=== PATIENT | male | born 1970 | race Caucasian/White ===

== ENCOUNTER 2023-07-03 01:10 | Inpatient (IN) | payer OTHER ==
[2023-07-03 01:41] LABS: #Basophils 0.1 thou/uL (0.0-0.2); #Monocytes 1.4 thou/uL (0.11-0.59); #Neutrophils 13.4 thou/uL (1.40-6.50); %Basophils 0.4 % (0.0-1.0); %Eosinophils 0.2 % (0.0-10.0); %Lymphocytes 4.2 % (21.0-51.0); %Monocytes 8.8 % (0.0-10.0); %Neutrophils 85.7 % (42.0-75.0); Hematocrit 41.9 % (42.0-52.0); Hemoglobin 14.6 g/dL (14.0-18.0); Mean Corpuscular HGB CONC 34.8 g/dL (32.0-36.0); Mean Corpuscular Hemoglobin 27.7 pg (27.0-31.0); Mean Corpuscular Volume 79.5 fl (78.0-98.0); Mean Platelet Volume 9.8 fL (7.4-10.4); Platelet Count 181 10x3/uL (130-400); RBC Distribution Width 14.4 % (11.5-14.5); Red Blood Cell (RBC) Count 5.27 mill/uL (4.70-6.10); White Blood Cell (WBC) Count 15.6 10x3/uL (4.8-10.8)
[2023-07-03 01:55] LABS: Bilirubin Negative (Negative); Blood, Urine Negative (Negative); Clarity Clear (Clear); Glucose, Urine (Dipstick) Greater than 1000 mg/dL (Negative); Ketone, Urine 40 mg/dL (Negative); Leukocyte Negative Leu/uL (Negative); Nitrite Negative (Negative); Protein, Urine (Dipstick) Negative (Neg-Trace); Specific Gravity, Urine 1.032 (1.002-1.036); Urobilinogen Normal mg/dL (Less than 2)
[2023-07-03 02:04] LABS: ALT (SGPT) 43 U/L (8-55); AST (SGOT) 36 U/L (5-34); Albumin 4.4 g/dL (3.5-5.0); Alkaline Phosphatase 65 U/L (40-110); Anion Gap 17 mmol/L (10-20); BUN (Urea Nitrogen) 19 mg/dL (8.4-25.7); Bilirubin, Total 1.6 mg/dL (0.2-1.2); Calc. Creatinine Clearance 0 mL/min (70-130); Calcium 8.8 mg/dL (7.8-10.44); Carbon Dioxide 18 mmol/L (22-29); Chloride 102 mmol/L (98-107); Estimated GFR 54; Globulin 2.7 g/dL (2.4-3.5); Glucose 326 mg/dL (70-105); Lipase 16 U/L (8-78); Potassium 3.7 mmol/L (3.5-5.1); Protein, Total 7.1 g/dL (6.0-8.3); Sodium 133 mmol/L (136-145)
[2023-07-03 02:15] LABS: Troponin I Less than 0.010 ng/mL (< 0.028)
[2023-07-03 02:29] LABS: SARS-CoV-2 NAA Rapid Test Not Detected (NotDetected)
[2023-07-03] MEDS ORDERED: Cefepime 2 GM VIAL ONE ×2 (04:47→04:49)
[2023-07-03] MEDS ORDERED: Vancomycin 1 GM/200 ML (FROZEN) BAG ONE (04:48)
[2023-07-03] MEDS ORDERED: Metoprolol Tartrate 5 MG/5 ML VIAL ONE (04:48)
[2023-07-03] MEDS ORDERED: Sodium Chloride 0.9% 1,000 ML IV SCH ×4 (06:00→08:45)
[2023-07-03] MEDS ORDERED: Ondansetron ODT 4 MG TAB SL PRN (06:00)
[2023-07-03] MEDS ORDERED: Ondansetron PF 4 MG/2 ML Vial IVP PRN (06:00)
[2023-07-03 07:10] LABS: Actual Bicarbonate (HCO3v) 18.2 mEq/L (22-28); Base Excess -4.3 mEq/L (-2.0 to +3.0); Calcium, Ionized (venous) 1.03 mmol/L (1.16-1.32); Chloride (VBG) 101 mmol/L (98-106); Hematocrit-VBG 44 % (42.0-52.0); Hemoglobin (Hb) 14.8 g/dL (13.1-17.2); Potassium (VBG) 3.95 mmol/L (3.70-5.30); Sodium 132 mmol/L (133-146)
[2023-07-03] MEDS ORDERED: Dextrose 5% in Water 1,000 ML IV PRN (08:13)
[2023-07-03] MEDS ORDERED: Glucagon 1 MG/ML KIT IM PRN (08:13)
[2023-07-03] MEDS ORDERED: Dextrose 50% Abboject 50 ML SYRINGE SLOW IVP PRN (08:13)
[2023-07-03 08:18] LABS: #Basophils 0.1 thou/uL (0.0-0.2); #Monocytes 1.3 thou/uL (0.11-0.59); #Neutrophils 14.8 thou/uL (1.40-6.50); %Basophils 0.3 % (0.0-1.0); %Eosinophils 0.1 % (0.0-10.0); %Lymphocytes 5.4 % (21.0-51.0); %Monocytes 7.5 % (0.0-10.0); %Neutrophils 86.3 % (42.0-75.0); Hematocrit 40.1 % (42.0-52.0); Hemoglobin 13.9 g/dL (14.0-18.0); Mean Corpuscular HGB CONC 34.7 g/dL (32.0-36.0); Mean Corpuscular Hemoglobin 27.8 pg (27.0-31.0); Mean Corpuscular Volume 80.2 fl (78.0-98.0); Mean Platelet Volume 10.4 fL (7.4-10.4); Platelet Count 191 10x3/uL (130-400); RBC Distribution Width 14.6 % (11.5-14.5); White Blood Cell (WBC) Count 17.2 10x3/uL (4.8-10.8)
[2023-07-03 08:19] LABS: Anion Gap 14 mmol/L (10-20); BUN (Urea Nitrogen) 14 mg/dL (8.4-25.7); Calc. Creatinine Clearance 0 mL/min (70-130); Calcium 8.6 mg/dL (7.8-10.44); Carbon Dioxide 19 mmol/L (22-29); Chloride 104 mmol/L (98-107); Estimated GFR 77; Glucose 289 mg/dL (70-105); Potassium 3.9 mmol/L (3.5-5.1); Sodium 133 mmol/L (136-145)
[2023-07-03] MEDS ORDERED: Acetaminophen 500 MG TAB ONE (09:01)
[2023-07-03] MEDS ORDERED: Meropenem 1 GM in Sodium Chloride 0.9% 100 ML IVPB SCH (10:00)
[2023-07-03] MEDS ORDERED: Vancomycin (BATCH) 1.5 GM in Premix 1 BAG IVPB SCH (12:15)
[2023-07-03] MEDS ORDERED: FLU VACC QS2023-24(6MOS UP)/PF 60 MCG/0.5 ML SYRINGE IM ONE (12:45)
[2023-07-03] MEDS: HumaLOG 300 UNITS/3 ML VIAL SC PRN ×3 (13:21→20:34)
[2023-07-03] MEDS ORDERED: Iopamidol-370 76% 500 ML MDV (1 ML CHARGE) ONE ×2 (13:56→14:02)
[2023-07-03] MEDS: Meropenem 1 GM in Sodium Chloride 0.9% 100 ML IVPB SCH (17:21)
[2023-07-03] MEDS ORDERED: Amlodipine 10 MG TAB PO SCH (18:00)
[2023-07-03] MEDS ORDERED: Losartan 25 MG TAB PO SCH (18:00)
[2023-07-03] MEDS: Sodium Chloride 0.9% 1,000 ML IV SCH (18:18)
[2023-07-03] MEDS ORDERED: Acetaminophen 325 MG TAB PO PRN (20:01)
[2023-07-03] MEDS ORDERED: Labetalol HCl 100 MG/20 ML VIAL SLOW IVP SCH (20:15)
[2023-07-03] MEDS ORDERED: Acetaminophen 500 MG TAB PO SCH (20:15)
[2023-07-03] MEDS: Heparin 5,000 UNITS/ML VIAL SC SCH (20:33)
[2023-07-03] MEDS: Vancomycin (BATCH) 1.75 GM in Premix 1 BAG IVPB SCH (20:49)
[2023-07-04] MEDS: HumaLOG 300 UNITS/3 ML VIAL SC PRN ×3 (00:19→21:58)
[2023-07-04] MEDS: Meropenem 1 GM in Sodium Chloride 0.9% 100 ML IVPB SCH ×3 (01:25→17:32)
[2023-07-04] MEDS: Losartan 25 MG TAB PO SCH (08:20)
[2023-07-04] MEDS: Heparin 5,000 UNITS/ML VIAL SC SCH ×2 (08:20→21:41)
[2023-07-04] MEDS: Amlodipine 10 MG TAB PO SCH (08:20)
[2023-07-04] MEDS: Vancomycin (BATCH) 1.75 GM in Premix 1 BAG IVPB SCH ×2 (08:20→22:12)
[2023-07-04] MEDS: Sodium Chloride 0.9% 1,000 ML IV SCH ×2 (08:21→22:00)
[2023-07-04 08:31] LABS: #Eosinphils 0.1 thou/uL (0.0-0.7); #Monocytes 0.8 thou/uL (0.11-0.59); #Neutrophils 5.7 thou/uL (1.40-6.50); %Basophils 0.3 % (0.0-1.0); %Eosinophils 1.2 % (0.0-10.0); %Lymphocytes 9.7 % (21.0-51.0); %Monocytes 10.8 % (0.0-10.0); %Neutrophils 77.7 % (42.0-75.0); Hematocrit 37.7 % (42.0-52.0); Hemoglobin 12.7 g/dL (14.0-18.0); Mean Corpuscular HGB CONC 33.7 g/dL (32.0-36.0); Mean Corpuscular Hemoglobin 27.5 pg (27.0-31.0); Mean Corpuscular Volume 81.8 fl (78.0-98.0); Mean Platelet Volume 9.7 fL (7.4-10.4); Platelet Count 140 10x3/uL (130-400); RBC Distribution Width 14.9 % (11.5-14.5); Red Blood Cell (RBC) Count 4.61 mill/uL (4.70-6.10); White Blood Cell (WBC) Count 7.3 10x3/uL (4.8-10.8)
[2023-07-04 08:53] LABS: Anion Gap 11 mmol/L (10-20); BUN (Urea Nitrogen) 11 mg/dL (8.4-25.7); Calc. Creatinine Clearance 140 mL/min (70-130); Calcium 8.6 mg/dL (7.8-10.44); Carbon Dioxide 23 mmol/L (22-29); Chloride 105 mmol/L (98-107); Estimated GFR 99; Glucose 289 mg/dL (70-105); Potassium 3.9 mmol/L (3.5-5.1); Sodium 135 mmol/L (136-145)
[2023-07-04 20:45] LABS: Vancomycin, Trough 10.4 ug/mL
[2023-07-04] MEDS: Vancomycin (BATCH) 1.5 GM in Premix 1 BAG IVPB SCH (21:52)
[2023-07-04] MEDS ORDERED: Carvedilol 25 MG TAB PO SCH (23:00)
[2023-07-05] MEDS: Meropenem 1 GM in Sodium Chloride 0.9% 100 ML IVPB SCH ×2 (02:49→09:01)
[2023-07-05] MEDS: Sodium Chloride 0.9% 1,000 ML IV SCH ×2 (05:21→09:14)
[2023-07-05] MEDS: Vancomycin (BATCH) 1.5 GM in Premix 1 BAG IVPB SCH (06:04)
[2023-07-05] MEDS: HumaLOG 300 UNITS/3 ML VIAL SC PRN ×2 (06:04→12:21)
[2023-07-05 06:25] VITALS: BMI 35.0
[2023-07-05 06:40] LABS: #Eosinphils 0.2 thou/uL (0.0-0.7); #Monocytes 0.7 thou/uL (0.11-0.59); #Neutrophils 3.8 thou/uL (1.40-6.50); %Basophils 0.7 % (0.0-1.0); %Eosinophils 3.5 % (0.0-10.0); %Lymphocytes 20.6 % (21.0-51.0); %Neutrophils 62.7 % (42.0-75.0); Hematocrit 34.8 % (42.0-52.0); Hemoglobin 11.9 g/dL (14.0-18.0); Mean Corpuscular HGB CONC 34.2 g/dL (32.0-36.0); Mean Corpuscular Hemoglobin 27.5 pg (27.0-31.0); Mean Corpuscular Volume 80.6 fl (78.0-98.0); Mean Platelet Volume 10.2 fL (7.4-10.4); Platelet Count 157 10x3/uL (130-400); RBC Distribution Width 14.3 % (11.5-14.5); Red Blood Cell (RBC) Count 4.32 mill/uL (4.70-6.10); White Blood Cell (WBC) Count 6.1 10x3/uL (4.8-10.8)
[2023-07-05 07:14] LABS: Anion Gap 10 mmol/L (10-20); BUN (Urea Nitrogen) 12 mg/dL (8.4-25.7); Calc. Creatinine Clearance 154 mL/min (70-130); Calcium 8.4 mg/dL (7.8-10.44); Carbon Dioxide 23 mmol/L (22-29); Chloride 106 mmol/L (98-107); Estimated GFR 105; Glucose 204 mg/dL (70-105); Potassium 3.6 mmol/L (3.5-5.1); Sodium 135 mmol/L (136-145)
[2023-07-05 08:03] VITALS: TEMP 98.2
[2023-07-05] MEDS: Heparin 5,000 UNITS/ML VIAL SC SCH (09:00)
[2023-07-05] MEDS ORDERED: Carvedilol 25 MG TAB PO SCH (09:00)
[2023-07-05] MEDS: Losartan 25 MG TAB PO SCH (09:01)
[2023-07-05] MEDS: Amlodipine 10 MG TAB PO SCH (09:01)
[2023-07-05 12:01] VITALS: BP 173/108
== END 2023-07-05 15:15 | disposition home or self-care (01) | DRG 872 ==
LOC: ERS 01:10 → IMCU/EMU 05:35 → SURG A 07-04 16:50
PROVIDERS: ADMIT Internal Medicine; ATTEND Emergency Medicine
DX: A41.9 Sepsis, unspecified organism (principal); E87.20 Acidosis, unspecified; N17.9 Acute kidney failure, unspecified; L03.116 Cellulitis of left lower limb; R65.20 Severe sepsis without septic shock; I10 Essential (primary) hypertension; Z20.822 Contact with and (suspected) exposure to COVID-19; E11.65 Type 2 diabetes mellitus with hyperglycemia; E66.9 Obesity, unspecified; Z68.35 Body mass index [BMI] 35.0-35.9, adult; Z11.52 Encounter for screening for COVID-19
CPT/HCPCS: 36415; 36416; 71045; 71275; 72148; 74177; 80048; 80053; 80202; 81001; 82010; 82805; 83605; 83690; 83880; 84484; 85025; 85379; 87040; 93005; 93010; 93970; 96361; 96365; 96367; 96372; 96375; J0692; J1644; J1650; J1815; J2185; J3370; J3370-JW; J3490; J7050; Q9967